=== PATIENT | male | born 1965 | race Caucasian/White ===

== ENCOUNTER → 2017-08-30 | Outpatient (CLI) | payer OTHER | END | disposition home or self-care (01) | LOC: LABPAT 16:04 | PROVIDERS: ATTEND Orthopaedic Surgery | DX: Z01.812 Encounter for preprocedural laboratory examination (principal) | CPT/HCPCS: 87070 ==

== ENCOUNTER → 2017-09-14 | Outpatient (CLI) | payer OTHER ==
[2017-09-14 17:14] LABS: Partial Thromboplastin Time 25.4 sec (22.0-30.0); Prothrombin Time 9.9 sec (9.0-12.0)
== END | disposition home or self-care (01) ==
LOC: LABPAT 16:46
PROVIDERS: ATTEND Orthopaedic Surgery
DX: Z01.812 Encounter for preprocedural laboratory examination (principal); M17.12 Unilateral primary osteoarthritis, left knee; Z79.01 Long term (current) use of anticoagulants
CPT/HCPCS: 85610; 85730

== ENCOUNTER 2017-09-25 08:49 | Inpatient (IN) | payer OTHER ==
[2017-09-13 11:40] VITALS: BMI 34.7
--- NOTE | 2017-09-24 09:31 | HP ---
HISTORY AND PHYSICAL CHIEF COMPLAINT: Left knee pain. HISTORY OF PRESENT ILLNESS: The patient is a 52-year-old male on disability, who presents with progressive left knee pain, worsening over the past several years. He is having difficult time with his normal weightbearing activities. He notes he is severely limited. He has had previous therapy and injections with only partial temporary relief. PAST MEDICAL HISTORY: Significant for [id number] diabetes, hypertension, hypothyroidism and arthritis along with PTSD. PAST SURGICAL HISTORY: Significant for previous right knee surgery. CURRENT MEDICATIONS: 1. Enalapril. 2. Ibuprofen. 3. Metformin. 4. Synthroid. ALLERGIES: He denies drug allergies. FAMILY HISTORY: Significant for pulmonary disease. SOCIAL HISTORY: Significant for previous tobacco use; however, he quit in 1990. He admits to social alcohol use. PHYSICAL EXAMINATION: On examination, the patient is approximately 5 feet 6 inches, 215 pounds of endomorphic habitus. HEENT exam is nonfocal. Neck is supple. He has painless passive motion of his left hip. Straight leg raise is negative. Active motion left knee -12 to 85 degrees of flexion. He is tender about the medial joint line. He has a moderate effusion. Collaterals stable, Teresita's negative, Neville's is equivocal. He has genu varum alignment. His distal neurovascular exam appears intact in the left lower extremity. X-rays to include weightbearing notch lateral and Merchant views left knee obtained in the office show severe medial and patellofemoral compartment narrowing. IMPRESSION: 1. Left knee severe medial and patellofemoral compartment osteoarthrosis. 2. Increased body mass index. 3. Type 2 diabetes. RECOMMENDATIONS: I talked to the patient at length regarding his condition and treatment options. At this point, he is having persistent significant pain and limitation because of osteoarthrosis despite conservative measures. After thorough discussion, he opts to proceed with surgery. We will plan to proceed with a left total knee arthroplasty. Risks and benefits were discussed at length in layman's terms. We will institute DVT prophylaxis postoperatively. MMODL / IJN: [id number] /
[~2017-09-25 08:49] MED LIST: ACETAMINOPHEN TAB 500 MG TAB PO ONE; DEXAMETHASONE SOD PHOSPHATE 10 MG/ML 1 ML VIAL IV ONE; HYDROmorphone 0.5 MG/0.5 ML SYRINGE IVP PRN; MELOXICAM 7.5 MG TAB PO ONE; MIDAZOLAM 2 MG/2 ML VIAL IV PRN; ONDANSETRON 4 MG/2 ML VIAL IVP ONE; SCOPOLAMINE 1.5MG/72HR PATCH TRANSDERM ONE; TRANEXAMIC ACID 1,000 MG in SODIUM CHLORIDE 0.9% 50 ML IVPB ONE; ceFAZolin IN SWFI 2 GM/20 ML SYRINGE IVP ONE
[2017-09-25] MEDS ORDERED: LIDOCAINE 1% 20 ML VIAL (10MG/ML) FOR IV START INTRADERMA ONE (10:00)
[2017-09-25] MEDS: LACTATED RINGERS 1,000 ML IV SCH ×2 (10:00→14:26)
[2017-09-25 10:02] LABS: Glucose,Whole Blood 174 mg/dL (75-99)
[2017-09-25] MEDS ORDERED: ROPIVACAINE 246.25 MG, EPINEPHrine 0.5 MG, KETOROLAC 30 MG, cloNIDine HCL/PF 80 MCG, WA... MISCELLANE ONE ×5 (10:11)
[2017-09-25 10:17] LABS: HCT 43.9 % (39.0-53.0); HGB 15.2 gm/dL (13.0-17.5); MCH 29.9 pg (25.0-35.0); MCHC 34.6 g/dL (31.0-37.0); MCV 86.4 fL (80.0-100.0); Mean Platelet Volume 6.9; Platelet Count 289 k/uL (150-450); RBC 5.08 m/uL (4.30-5.90); RDW 12.7 % (11.5-15.5); WBC 5.6 k/uL (3.8-10.6)
[2017-09-25] MEDS ORDERED: ONDANSETRON 4 MG/2 ML VIAL ONE (11:00)
[2017-09-25] MEDS ORDERED: ROPIVACAINE 1,100 MG, SODIUM CHLORIDE 0.9% 330 ML MISCELLANE PRN ×2 (11:03)
[2017-09-25] MEDS ORDERED: TRANEXAMIC ACID 1,000 MG/10 ML VIAL ONE (11:07)
[2017-09-25] MEDS ORDERED: SUCCINYLCHOLINE CHLORIDE 100 MG/5 ML SYR IV ONE (11:07)
[2017-09-25] MEDS ORDERED: SODIUM CHLORIDE 0.9% 100 ML BAG ONE (11:07)
[2017-09-25] MEDS ORDERED: LIDOCAINE 1% INJ 10MG/ML (20 ML MDV) ONE (11:07)
[2017-09-25] MEDS ORDERED: ROCURONIUM BROMIDE 10 MG/ML 10 ML VIAL IV ONE (11:07)
[2017-09-25] MEDS ORDERED: MORPHINE SULFATE 10 MG/ML SYRINGE ONE (11:07)
[2017-09-25] MEDS ORDERED: PROPOFOL 10 MG/ML 20 ML VIAL IV ONE (11:07)
[2017-09-25] MEDS ORDERED: MIDAZOLAM 2 MG/2 ML VIAL ONE (11:07)
[2017-09-25] MEDS ORDERED: NEOSTIGMINE 1 MG/ML 10 ML VIAL ONE (11:07)
[2017-09-25] MEDS ORDERED: fentaNYL (PF) 50 MCG/ML 2 ML AMP ONE (11:07)
[2017-09-25] MEDS ORDERED: GLYCOPYRROLATE 0.2 MG/ML 2 ML VIAL ONE (11:07)
--- NOTE | 2017-09-25 11:07 | P.ONQ ---
Anesthesiology Proc Note - PNB - Peripheral Nerve Block Performed Left Adductor Canal Infusion Time Out Performed: Yes Procedure Start Time: 10:17 Procedure Stop Time: 10:35 Indication: Acute Post-Operative Pain, Requested by physician Sedation Type: Sedate with meaningful contact maintained Preparation: Sterile Dressing Position: Supine Catheter: Indwelling Needle Types: On-Q Needle Size: 100mm (4") Needle Gauge: 21 Technique: Ultrasound Injectate: 0.5% Ropivacaine (see comment for volume) (ropi .5% 20cc) Blood Aspirated: No Pain Paresthesia on Injection Noted: No Resistance on Injection: Normal Events: Uneventful and Well Tolerated
[2017-09-25] MEDS ORDERED: ceFAZolin 3,000 MG in SODIUM CHLORIDE 0.9% IRRIGATIO 3,000 ML IRRIGATION ONE (11:44)
[2017-09-25] MEDS ORDERED: LACTATED RINGERS 1,000 ML IV ONE (12:04)
[2017-09-25] MEDS ORDERED: HYDROcodone/APAP 7.5-325MG 1 EACH TAB PO PRN (12:54)
[2017-09-25] MEDS ORDERED: NALOXONE 0.4 MG/ML 1 ML VIAL IV PRN (12:54)
[2017-09-25] MEDS ORDERED: ACETAMINOPHEN TAB 325 MG TAB PO PRN (12:54)
[2017-09-25] MEDS ORDERED: MORPHINE SULFATE 4MG/4ML SYRG IVP PRN ×2 (12:54)
[2017-09-25] MEDS ORDERED: MAGNESIUM HYDROXIDE 2,400 MG/10 ML CUP PO PRN (12:54)
[2017-09-25] MEDS ORDERED: ONDANSETRON 4 MG/2 ML VIAL IVP PRN (12:54)
[2017-09-25] MEDS ORDERED: MORPHINE SULFATE 4MG/4ML SYRG IV PRN (12:54)
--- NOTE | 2017-09-25 13:28 | P.OP ---
Date of Procedure: 09/25/17 Preoperative Diagnosis: Left knee severe tricompartmental osteoarthrosis Postoperative Diagnosis: Same Procedure(s) Performed: Left total knee mqkquifntdko-xahvkrkt-mcvdzubs substituting Implants: Depuy Attune size 8 cemented femoral component, size 7 cemented tibial component , 9 mm articular surface, 38 mm cemented patellar component. This is a posterior stabilized implant. Anesthesia: GETA, regional, local Surgeon: Hector Jackson Retort Setter #1: Valentino Montano Estimated Blood Loss (ml): 75 Pathology: other (Bone fragments) Condition: stable Disposition: PACU Indications for Procedure: The patient's a 52-year-old male presents with progressive left knee pain secondary to osteoarthrosis despite conservative measures. A discussion of the risks and benefits of operative intervention versus continued conservative measures was made with the patient. He opted to proceed with surgery. Operative risks to include infection, neurovascular injury, development of blood clots, possible component loosening, possible component failure and need for subsequent procedures was discussed. Informed consent was obtained. Operative Findings: As below Description of Procedure: Patient was brought to the operating room, and after induction of general anesthesia the left lower extremity was prepped and draped in a normal fashion. The tourniquet was inflated to 270 mmHg. A longitudinal incision extending 3 finger breaths above the superior pole of patella extending to the medial aspect of the tibial tubercle was then made. The skin and subcutaneous tissues were divided sharply. Electrocautery was used for hemostasis. A medial parapatellar arthrotomy was then performed. The medial soft tissues to include the superficial and deep portions of the medial collateral ligament as well as the medial hamstring tendons were elevated subperiosteally. The patella was everted. A portion of the retropatellar fat pad was excised sharply. The knee was then flexed. The anterior cruciate ligament was sacrificed. Blunt retractors were then placed. A starting hole was made in the distal femur 1 cm anterior to the posterior cruciate ligament origin. An intramedullary femoral guide was then gently inserted planning on 5 valgus distal cut with 9 mm distal resection. The distal cutting block was placed. The distal cut was then made. The posterior referencing sizing guide was utilized. I felt size 8 was most appropriate. 3 of external rotation was built into the jig and verified off the trans-epicondylar axis and the posterior condyles. The cutting block was pinned in place. The anterior, posterior, and chamfer cuts were then made. The bone fragments were removed. The proximal guide was then placed for the intercondylar cut. The reciprocating saw was utilized. The bone was removed in one fragment. The trial size 8 femoral component was placed and was fully seated. There is good anterior to posterior and medial to lateral fit. The distal peg holes were drilled. The trial component was then removed. Attention was then paid towards preparing the proximal tibia. An extra measure tibial guide was utilized in line with the tibial shaft and second metatarsal distally. I planned on 3 posterior slope resecting 2 mm from the medial compartment. The cutting block was pinned in place. The proximal tibial cut was then made. The bone was removed one fragment. This appeared to be in adequate in both flexion and extension gaps therefore an additional 2 mm was resected. The remnants of the medial and lateral menisci were excised at the capsular junction with electrocautery. The proximal medial tibial osteophytes were carefully removed. The tibia sized most appropriately size 7. The trial femoral and tibial components were placed along with a 9 mm articular surface. I was able to obtain full flexion and extension with good stability with varus and valgus stress. After several flexion and extension cycles, the tibial rotation was marked with electrocautery in line with the medial one third of the tibial tubercle. Attention was then paid towards the patella. A patella reamer was utilized taking this down to 14 mm of bone stock. A good flush cut was made. The patella sized most appropriately 30 mm per the proximal holes were drilled. The trial components placed. The knee was taken through range of motion. I had good patellofemoral tracking with no hands technique. The trial components were then removed. The flexion and extension gaps were checked and felt to be symmetric. The posterior osteophytes off the distal femur were carefully removed with a curved osteotome. The tibia was prepared in the appropriate rotation with appropriate drill and keel punch. The posterior soft tissues were injected with ropivacaine. The bony surfaces were prepared with pulsatile lavage and dried. The tibial component was then cemented in place and was fully seated. Excess cement was removed. The femoral component cemented in placed and was fully seated. Excess cement was removed. The trial 9 mm articular surface was placed and the knee was put in full extension. The patella component was then cemented in place. After the cement had sufficiently hardened, the knee was again taken through range of motion. Again I was able to obtain full flexion and extension with good stability with varus and valgus stress. The trial articular surface was removed and the final 9 mm articular surface was placed. This was fully seated. Care was taken to avoid any soft tissue interposition. Pulsatile lavage was again utilized. The tourniquet was deflated with less than 70 minutes total tourniquet time. Final hemostasis was obtained with electrocautery. A deep drain was placed exiting laterally. A second dose of IV TXA was given. The medial parapatellar arthrotomy was closed with #2 Ethibond suture. The subcutaneous tissues were reapproximated with interrupted 2-0 Vicryl sutures. The skin was reapproximated with 3-0 subcuticular strata fix suture. Skin tape and adhesive was applied. A sterile dressing was applied. The patient was awoken from general anesthesia and transferred to recovery room in good condition. Blood loss was estimated 75 mL. No complications were incurred. Sponge and needle counts were correct at the end the case.
[2017-09-25] MEDS: MORPHINE SULFATE 4 MG/ML SYRINGE IV ONE ×2 (14:05→14:24)
[2017-09-25 14:17] LABS: Glucose,Whole Blood 212 mg/dL (75-99)
--- NOTE | 2017-09-25 14:20 | XR ---
EXAMINATION TYPE: XR knee limited LT DATE OF EXAM: 09/25/2017 CLINICAL HISTORY: Left knee pain and arthritis status post total knee replacement. TECHNIQUE: Portable AP and crosstable lateral views of the left knee are obtained immediately postop eratively. COMPARISON: Left knee x-ray dated 06/29/2014. FINDINGS: Metallic hardware from total left knee arthroplasty is seen and appears satisfactory in al ignment and position. There is evidence of recent surgery with diffuse subcutaneous gas and percutan eous suprapatellar surgical drain noted. IMPRESSION: METALLIC HARDWARE FROM TOTAL LEFT KNEE ARTHROPLASTY IS SATISFACTORY IN ALIGNMENT.
[2017-09-25] MEDS ORDERED: INSULIN ASPART 100 UNIT/ML 1 ML 10 ML VIAL SQ ONE (15:00)
[2017-09-25] MEDS: fentaNYL (PF) 50 MCG/ML 2 ML AMP IV PRN ×2 (15:00→15:19)
[2017-09-25 17:29] LABS: Glucose,Whole Blood 192 mg/dL (75-99)
[2017-09-25 20:14] LABS: Glucose,Whole Blood 232 mg/dL (75-99)
[2017-09-25] MEDS ORDERED: traMADol 50 MG TAB ONE (23:00)
[2017-09-25] MEDS ORDERED: INSULIN DETEMIR 100 UNIT/ML 10 ML VIAL SQ ONE (23:00)
--- NOTE | 2017-09-26 03:12 | CONS ---
CONSULTATION DATE OF SERVICE: 09/25/2017. REASON FOR CONSULTATION: Advice regarding diabetes mellitus and other medications requested by Orthopedic Surgery. HISTORY OF PRESENT ILLNESS: This 52-year-old gentleman with a past medical history of diabetes mellitus, hypertension, hypertension, sleep apnea, being followed by Dr. Bentley in the clinic is admitted after left total knee joint arthroplasty. Blood sugars are slightly elevated. There is no history of any fever, rigors. No history of headache, loss of consciousness, seizures. PAST MEDICAL HISTORY: Diabetes mellitus, hypertension, hyperlipidemia, sleep apnea, history of depression, PTSD. HOME MEDICATIONS: 1. Glucophage 500 mg p.o. b.i.d. 2. Zinc 50 mg p.o. daily. 3. Multivitamins 1 p.o. daily. 4. Magnesium 200 mg p.o. daily. 5. Mevacor 20 mg q.h.s. 6. Claritin 10 mg. 7. Insulin Levemir 33 units subcu b.i.d. 8. NovoLog b.i.d. 9. Motrin 600 mg every 6 hours p.r.n. 10.Vasotec 20 mg p.o. daily. 11.Celexa 30 mg q.h.s. 12.Lipitor 20 mg q.h.s. 13.Vitamin C 1000 mg p.o. daily. 14.Xarelto 10 mg p.o. daily. ALLERGIES: None. FAMILY HISTORY: No history of heart disease or strokes in the family. SOCIAL HISTORY: Previous history of smoking. Occasional alcohol intake. REVIEW OF SYSTEMS: ENT: No diminished hearing, diminished vision. CARDIOVASCULAR: No angina, palpitations. RESPIRATORY: As mentioned earlier. GI: No nausea or vomiting. : No dysuria. NERVOUS: No numbness or weakness. ALLERGY/IMMUNOLOGY: No asthma or hay fever. MUSCULOSKELETAL: As mentioned earlier. HEMATOLOGY/ONCOLOGY: No history of anemia. ENDOCRINE: Diabetes mellitus type 2. CONSTITUTIONAL: As mentioned earlier. DERMATOLOGY: Negative. RHEUMATOLOGY: Negative. PSYCHIATRY: As mentioned earlier. PHYSICAL EXAMINATION: Alert and oriented x3. Pulse 82, blood pressure 140/78, respirations 16, temperature 98.7, pulse ox 94% on room air. HEENT: Conjunctivae normal. Oral mucosa moist. NECK: No jugular venous distention. No carotid bruits. No lymph node enlargement. CARDIOVASCULAR: S1, S2 muffled. No S4. No S4. RESPIRATORY: Breath sounds diminished in the bases. No rhonchi. No crackles. ABDOMEN: Soft, nontender. No mass palpable. LEGS: No edema. No swelling, status post left total knee arthroplasty. NERVOUS SYSTEM: Higher functions as mentioned earlier. Moves all 4 limbs. No focal motor or sensory deficits. LYMPHATIC: No lymphadenopathy in neck or axillae. SKIN: No ulcer, rash or bleeding. LABS: WBC 5.6, glucose 174, 190, 232. ASSESSMENT: 1. Status post left total knee joint arthroplasty. 2. Diabetes mellitus type 2. 3. Hypertension. 4. Hyperlipidemia. 5. Sleep apnea. 6. History of kidney stones. 7. History of back surgery. 8. Degenerative joint disease. 9. Depression. 10.Posttraumatic stress disorder. 11.Remote history of nicotine dependence. RECOMMENDATION AND DISCUSSION: In this 52-year-old gentleman who presented with multiple complex medical issues , we will monitor the patient closely, continue the current medical management and continue symptomatic treatment. Otherwise at this time I recommend continue with home dose of Levemir and Accu-Cheks a.c. and at bedtime. Otherwise, DVT prophylaxis, incentive spirometry. Will follow the patient closely with you and thank you for letting us take care of the patient and the patient may be asked to follow up with primary physician closely in the morning. MMODL / IJN: [id number] / MTDD
[2017-09-26 07:19] LABS: Glucose,Whole Blood 126 mg/dL (75-99)
[2017-09-26 07:36] LABS: Basophils % (A) 0 %; Eosinophils % (A) 0 %; Lymphocytes # (A) 1.6 k/uL (1.0-4.8); Lymphocytes % (A) 19 %; MCH 29.8 pg (25.0-35.0); MCHC 33.6 g/dL (31.0-37.0); MCV 88.6 fL (80.0-100.0); Mean Platelet Volume 6.8; Monocytes # (A) 0.7 k/uL (0-1.0); Monocytes % (A) 8 %; Neutrophils # (A) 6.2 k/uL (1.3-7.7); Neutrophils % (A) 72 %; Platelet Count 265 k/uL (150-450); RBC 3.95 m/uL (4.30-5.90); RDW 12.7 % (11.5-15.5); WBC 8.7 k/uL (3.8-10.6)
[2017-09-26 07:47] LABS: HGB 11.8 gm/dL (13.0-17.5)
--- NOTE | 2017-09-26 08:34 | P.PN ---
Progress Note - Text Progress Note Date: 09/26/17 . Postoperative day # 1 status post total knee arthroplasty, under spinal anesthesia, and adductor canal catheter placed for postoperative analgesia, currently at ropivacaine 0.2% 8 mL per hour and continuous infusion, visual analogue scale is 3/10, patient using oral pain medication for breakthrough pain. Assessment and plan= Acute postoperative pain, adductor canal catheter for pain control, pain is well controlled we'll continue the same management.
[2017-09-26] MEDS: MULTIVITAMINS, THERA 1 EACH TAB PO SCH (08:38)
[2017-09-26] MEDS: LORATADINE 10 MG TAB PO SCH (08:38)
[2017-09-26] MEDS: traMADol 50 MG TAB PO SCH ×5 (08:38→21:22)
[2017-09-26] MEDS: metFORMIN 500 MG TAB PO SCH ×2 (08:38→17:29)
[2017-09-26] MEDS: ZINC SULFATE 220 MG CAP PO SCH (08:39)
[2017-09-26] MEDS: LISINOPRIL 20 MG TAB PO SCH (08:39)
[2017-09-26] MEDS: RIVAROXABAN 10 MG TAB PO SCH (08:39)
[2017-09-26] MEDS: MAGNESIUM OXIDE 400 MG TAB PO SCH (08:39)
[2017-09-26] MEDS: INSULIN DETEMIR 100 UNIT/ML 10 ML VIAL SQ SCH ×2 (08:44→20:42)
[2017-09-26] MEDS: ceFAZolin IN SWFI 2 GM/20 ML SYRINGE IVP SCH ×2 (09:53→09:54)
[2017-09-26] MEDS: SENNOSIDES-DOCUSATE SODIUM 1 EACH TAB PO SCH ×2 (09:54→20:42)
[2017-09-26] MEDS: LACTATED RINGERS 1,000 ML IV SCH (09:58)
[2017-09-26] MEDS: HYDROcodone/APAP 7.5-325MG 1 EACH TAB PO PRN ×3 (11:07→23:42)
[2017-09-26] MEDS ORDERED: MORPHINE ORAL SOLN 10 MG/5 ML CUP PO PRN ×3 (11:19→11:20)
--- NOTE | 2017-09-26 11:50 | P.PN ---
Subjective Progress Note Date: 09/26/17 Principal diagnosis: Status post left total knee arthroplasty Patient is seen today resting in his hospital chair, he appears comfortable. He is ambulating well with physical therapy. He denies any headaches, lightheadedness, chest pain or shortness of breath. Objective - Vital Signs Vital signs: Vital Signs Temp 98.4 F 09/26/17 08:36 Pulse 75 09/26/17 08:36 Resp 16 09/26/17 08:36 BP 133/74 09/26/17 08:36 Pulse Ox 98 09/26/17 08:36 Intake & Output 09/25/17 09/26/17 09/26/17 18:59 06:59 18:59 Intake Total 2000 Output Total 435 1020 520 Balance 1566 -1020 -520 Weight 97.522 kg Intake: IV 2000 Output: Drainage 320 120 Left Knee 320 120 Urine 375 700 400 Uretheral (Mckinney) 400 Estimated Blood Loss 60 Other: Voiding Method Indwelling Catheter Indwelling Catheter - Exam Left lower extremity: Incision is clean, dry, and intact. The prineo tape is in good condition. There is minimal soft tissue swelling and ecchymosis surrounding the medial and lateral aspects of the incision. Calf is soft, no tenderness with palpation. Plantar flexion, dorsiflexion, EHL, FHL are intact. Sensory exam to light touch throughout the extremity is intact, dorsal pedis pulses 2+. - Labs CBC & Chem 7: 09/26/17 06:51 Labs: Abnormal Lab Results - Last 24 Hours (Table) 09/25/17 09/25/17 09/25/17 Range/Units 13:57 17:25 20:10 RBC (4.30-5.90) m/uL Hgb (13.0-17.5) gm/dL Hct (39.0-53.0) % POC Glucose (mg/dL) 212 H 192 H 232 H (75-99) mg/dL 09/26/17 09/26/17 Range/Units 06:51 07:16 RBC 3.95 L (4.30-5.90) m/uL Hgb 11.8 L D (13.0-17.5) gm/dL Hct 35.0 L (39.0-53.0) % POC Glucose (mg/dL) 126 H (75-99) mg/dL Assessment and Plan Plan: Assessment: 1. Postop day #1 status post left total knee arthroplasty Plan: Pain control, continue oral medication Continue with physical therapy Daily dressing changes/ice and elevate GI and DVT prophylaxis, continue Xarelto 10 mg Medical recommendations Discharge planning: Patient to be discharged home tomorrow Time with Patient: Less than 30
[2017-09-26 11:58] LABS: Glucose,Whole Blood 164 mg/dL (75-99)
[2017-09-26 17:25] LABS: Glucose,Whole Blood 153 mg/dL (75-99)
--- NOTE | 2017-09-26 20:00 | PN ---
PROGRESS NOTE DATE OF SERVICE: 09/26/2017 52-year-old gentleman who was admitted after left total knee arthroplasty, is being closely monitored. No chest pain. No palpitations. No fever. Blood sugar is improving at this time. PHYSICAL EXAM: Alert and oriented x3. Pulse is 80, blood pressure 118/56, respirations 16, temperature 98.2, pulse ox 100% on room air. HEENT: Conjunctivae normal. NECK: No jugular venous distention. CARDIOVASCULAR: S1, S2 muffled. RESPIRATORY: Breath sounds diminished in the bases. No rhonchi, no crackles. ABDOMEN: Soft, nontender. LEGS: Status post knee arthroplasty. NERVOUS SYSTEM: No focal deficits. LABS: WBC 8.2, hemoglobin 11.8. Accu-Cheks 160, 153. ASSESSMENT: 1. Status post left total knee arthroplasty. 2. Diabetes mellitus type 2. 3. Hypertension. 4. Hyperlipidemia. 5. Sleep apnea. 6. History of kidney stones. 7. History of back surgery. 8. History of degenerative joint disease. 9. History of depression. 10.History of posttraumatic stress disorder. 11.Remote history of nicotine dependence. RECOMMENDATIONS AND DISCUSSION: This 52-year-old gentleman who presented with multiple complex medical issues, will monitor the patient closely. Continue the current management and symptomatic treatment. Otherwise at this time monitor blood sugars closely. The patient is started on home dose of insulin. DVT prophylaxis. The rest of the recommendations per Orthopedic Surgery. Further recommendations to follow. MMODL / IJN: [id number] /
[2017-09-26 20:04] LABS: Glucose,Whole Blood 208 mg/dL (75-99)
[2017-09-26] MEDS ORDERED: CITALOPRAM HYDROBROMIDE 10 MG TAB PO SCH (21:00)
[2017-09-26] MEDS ORDERED: ATORVASTATIN 20 MG TAB PO SCH (21:00)
[2017-09-26] MEDS ORDERED: NON-FORMULARY DRUG (Lovastatin 20 MG) PO SCH (21:00)
[2017-09-27] MEDS: HYDROcodone/APAP 7.5-325MG 1 EACH TAB PO PRN (05:30)
[2017-09-27 07:03] LABS: Glucose,Whole Blood 86 mg/dL (75-99)
[2017-09-27] MEDS: ZINC SULFATE 220 MG CAP PO SCH (10:03)
[2017-09-27] MEDS: LORATADINE 10 MG TAB PO SCH (10:03)
[2017-09-27] MEDS: LISINOPRIL 20 MG TAB PO SCH (10:03)
[2017-09-27] MEDS: MULTIVITAMINS, THERA 1 EACH TAB PO SCH (10:03)
[2017-09-27] MEDS: RIVAROXABAN 10 MG TAB PO SCH (10:04)
[2017-09-27] MEDS: INSULIN DETEMIR 100 UNIT/ML 10 ML VIAL SQ SCH (10:04)
[2017-09-27] MEDS: metFORMIN 500 MG TAB PO SCH (10:04)
[2017-09-27] MEDS: MAGNESIUM OXIDE 400 MG TAB PO SCH (10:04)
[2017-09-27] MEDS: traMADol 50 MG TAB PO SCH ×2 (10:06→13:48)
[2017-09-27 11:47] LABS: Glucose,Whole Blood 141 mg/dL (75-99)
--- NOTE | 2017-09-27 11:56 | P.PN ---
Subjective Progress Note Date: 09/27/17 Principal diagnosis: Status post left total knee arthroplasty Patient is seen today resting in his hospital chair, he appears comfortable. He is ambulating well with physical therapy. He denies any headaches, lightheadedness, chest pain or shortness of breath. Objective - Vital Signs Vital signs: Vital Signs Temp 98.2 F 09/27/17 07:00 Pulse 74 09/27/17 07:00 Resp 14 09/27/17 07:00 BP 123/74 09/27/17 07:00 Pulse Ox 98 09/27/17 09:20 Intake & Output 09/26/17 09/27/17 09/27/17 18:59 06:59 18:59 Intake Total 600 500 Output Total 520 500 Balance -520 100 500 Intake: Oral 600 500 Output: Drainage 120 Left Knee 120 Urine 400 500 Uretheral (Mckinney) 400 Other: Voiding Method Toilet Urinal # Voids 2 2 - Exam Left lower extremity: Incision is clean, dry, and intact. The prineo tape is in good condition. There is minimal soft tissue swelling and ecchymosis surrounding the medial and lateral aspects of the incision. Calf is soft, no tenderness with palpation. Plantar flexion, dorsiflexion, EHL, FHL are intact. Sensory exam to light touch throughout the extremity is intact, dorsal pedis pulses 2+. - Labs CBC & Chem 7: 09/26/17 06:51 Labs: Abnormal Lab Results - Last 24 Hours (Table) 09/26/17 09/26/17 09/26/17 Range/Units 11:55 17:20 20:02 POC Glucose (mg/dL) 164 H 153 H 208 H (75-99) mg/dL 09/27/17 Range/Units 11:11 POC Glucose (mg/dL) 141 H (75-99) mg/dL Assessment and Plan Plan: Assessment: 1. Postop day #2 status post left total knee arthroplasty Plan: Pain control, continue oral medication Continue with physical therapy Daily dressing changes/ice and elevate GI and DVT prophylaxis, we'll discharge home on Eliquis 2.5mg bid Medical recommendations Discharge planning: Patient will be discharged home today Time with Patient: Less than 30
--- NOTE | 2017-09-27 11:59 | P.DS ---
Providers Date of admission: 09/25/17 08:49 Expected date of discharge: 09/27/17 Attending physician: Hector Jackson Consults: 09/25/17 12:54 Consult Physician Routine Consulting Provider: Jose Luis Sims Consult Reason/Comments: medical management Do you want consulting provider notified?: Yes Primary care physician: [facility] Hospital Course: Date of admission: 09/25/2017 Date of discharge: 09/27/2017 Admission diagnosis: Status post left total knee arthroplasty Discharge diagnosis: Same Attending physician: Dr. Jackson Surgical procedures: Left total knee arthroplasty Brief history: Patient is a 52-year-old male with a history of progressive primary left knee osteoarthritis. At this point patient has failed conservative treatment measures and has opted to proceed with a elective left total knee arthroplasty. Hospital course: Details of patient's surgery can be found in operative report. Patient tolerated the procedure well and was subsequently transported to orthopedic floor. Patient's orthopeidc and medical care was provided daily. Patient had daily laboratory tests performed for evaluation of overall blood counts. Patient had daily physical therapy to include strengthening range of motion as well as education with walker ambulation. Patient had daily CPM usage as part of their physical therapy program. Patient was treated with Xarelto for their postoperative DVT prophylaxis during their inpatient stay. Patient was noted to have a relatively uneventful postoperative course. Patient reported satisfactory pain control with oral pain medications by postoperative day 0. Patient showed satisfactory progress with physical therapy. Patient moved steadily through the program and had no difficulty meeting the goals by postoperative day 2. Given patient's otherwise satisfactory course and having met physical therapy goals, plan is to discharge patient home on postoperative day 2. Discharge condition/disposition: Patient will be discharged home in stable condition. Discharge medications: Instructions are given on resumption of patient's normal daily medications per primary care recommendation, in addition patient will be prescribed . Discharge instructions: 1. Wound care and infection precautions, keep incision dry and covered while showering, no lotions, creams, moisturizers. No soaking, tubs, pools, hottubs. Do not scrub over the incision. 2. Weight-bear as tolerated with walker / cane until follow-up. 3. Ice and elevate when necessary. Do not exceed 20 minutes per hour with ice pack. 4. Utilize compression sleeve until seen at first follow up appointment. 5. Visiting nursing care. 6. Home physical therapy including home CPM. 7. Pain meds and anticoagulants per prescription. 8. Pain medication has potential to cause constipation. Increase oral fluid and fiber intake. Contact primary care provider if you have not had a bowel movement within 48 hours after discharge 9. No anti-inflammatory medication until discussed at first post operative visit, this including Motrin, Aleve, Mobic, Diclofenac. 10. Follow up in office at 2 weeks postop with Monster Montano PA-C 11. Follow up with your primary care doctor 7-10 days after discharge. 12. Contact [facility] with any questions, . Procedures: Left total knee arthroplasty Patient Condition at Discharge: Good Plan - Discharge Summary Discharge Rx Participant: Yes New Discharge Prescriptions: New Docusate [Colace] 100 mg PO DAILY #30 capsule HYDROcodone/APAP 7.5-325MG [Gotha 7.5] 1 - 2 each PO Q6HR PRN #60 tab PRN Reason: Pain traMADol HCl [Ultram] 50 mg PO Q6H PRN #40 tab PRN Reason: Pain Apixaban [Eliquis] 2.5 mg PO BID #24 tab Continue Multivitamins, Thera [Multivitamin (formulary)] 1 tab PO DAILY Lovastatin [Mevacor] 20 mg PO HS Citalopram Hydrobromide [CeleXA] 30 mg PO HS metFORMIN HCL [Glucophage] 500 mg PO BID Loratadine [Claritin] 10 mg PO DAILY Enalapril [Vasotec] 20 mg PO DAILY Zinc 50 mg PO DAILY Magnesium 200 mg PO DAILY Insulin Detemir [Levemir] 33 unit SQ BID Insulin Aspart [NovoLOG] See Protocol SQ BID Ascorbic Acid [Vitamin C] 1,000 mg PO DAILY Atorvastatin Calcium [Lipitor] 20 mg PO HS Discontinued Ibuprofen [Motrin] 600 mg PO Q6HR PRN PRN Reason: Pain Discharge Medication List Ascorbic Acid [Vitamin C] 1,000 mg PO DAILY 09/13/17 [History] Citalopram Hydrobromide [CeleXA] 30 mg PO HS 09/13/17 [History] Enalapril [Vasotec] 20 mg PO DAILY 09/13/17 [History] Insulin Aspart [NovoLOG] See Protocol SQ BID 09/13/17 [History] Insulin Detemir [Levemir] 33 unit SQ BID 09/13/17 [History] Loratadine [Claritin] 10 mg PO DAILY 09/13/17 [History] Lovastatin [Mevacor] 20 mg PO HS 09/13/17 [History] Magnesium 200 mg PO DAILY 09/13/17 [History] Multivitamins, Thera [Multivitamin (formulary)] 1 tab PO DAILY 09/13/17 [History ] Zinc 50 mg PO DAILY 09/13/17 [History] metFORMIN HCL [Glucophage] 500 mg PO BID 09/13/17 [History] Atorvastatin Calcium [Lipitor] 20 mg PO HS 09/14/17 [History] Apixaban [Eliquis] 2.5 mg PO BID #24 tab 09/27/17 [Rx] Docusate [Colace] 100 mg PO DAILY #30 capsule 09/27/17 [Rx] HYDROcodone/APAP 7.5-325MG [Gotha 7.5] 1 - 2 each PO Q6HR PRN #60 tab 09/27/17 [ Rx] traMADol HCl [Ultram] 50 mg PO Q6H PRN #40 tab 09/27/17 [Rx] Follow up Appointment(s)/Referral(s): [facility], [NON-STAFF] - Valentino Montano PAC [PHYSICIAN RESEARCH SOIL SCIENTIST] - 10/12/17 2:10 pm Luciano Bentley DO [Doctor of Osteopathic Medicine] - 1 Week Activity/Diet/Wound Care/Special Instructions: Orthopedic Discharge Instructions: 1. Wound care and infection precautions, keep incision dry and covered while showering, no lotions, creams, moisturizers. No soaking, pools, hot tubs. Do not scrub over incision. 2. Weight-bear as tolerated with walker / cane until follow-up. 3. Ice and elevate when necessary. Do not exceed 20 minutes per hour with ice pack. 4. Utilize compression sleeve until seen at first follow up appointment. 5. Visiting nursing care. 6. Home physical therapy including home CPM. 7. Pain meds and anticoagulants per prescription. 8. Pain medication has potential to cause constipation. Increase oral fluid and fiber intake. Contact primary care provider if you have not had a bowel movement within 48 hours after discharge. 9. No anti-inflammatory medication until discussed at first post operative visit, this including Motrin, Aleve, Mobic, Diclofenac. 10. Follow up in office at 2 weeks postop with Monster Montano PA-C 11. Follow up with your primary care doctor 7-10 days after discharge. 12. Contact [facility] with any questions, [phone]. 13. [facility] - [phone]- will deliver to bedside before discharge. DIet: Consistent carb Accu-Cheks before meals and at bedtime, maintain log and take to follow-up visit with PCP for further recommendations Discharge Disposition: HOME WITH HOME HEALTH SERVICES
[2017-09-27 14:50] VITALS: BP 158/96; PULSE 105; RESP 16; TEMP 97.6
[2017-09-27 17:40] LABS: Glucose,Whole Blood 63 mg/dL (75-99)
--- NOTE | 2017-09-28 00:10 | PN ---
PROGRESS NOTE DATE OF SERVICE: 09/27/2017 INTERVAL HISTORY: This 52-year-old gentleman admitted with left total knee arthroplasty is improved significantly. Blood sugars are much better controlled. The Lantus insulin is to continue. No chest pain. No palpitations. No fever. EXAM: Alert and oriented x3. Pulse is 105, blood pressure 148/96, respirations 16, temperature 97.6, pulse ox 97% on room air. HEENT: Conjunctivae normal. NECK: No jugular venous distention. CARDIOVASCULAR: S1, S2. RESPIRATORY: Breath sounds diminished at the bases. No rhonchi, no crackles. ABDOMEN: Soft. LEGS: Status post arthroplasty. NERVOUS SYSTEM: No focal deficits. LABS: Accu-Cheks 86, 141. ASSESSMENT: 1. Status post left total knee arthroplasty. 2. Diabetes type 2. 3. Hypertension. 4. Hyperlipidemia. 5. Sleep apnea. 6. History of kidney stones. 7. History of back surgery. 8. History of DJD. 9. History of depression. 10.History of posttraumatic stress disorder. 11.History of remote nicotine dependence. RECOMMENDATIONS AND DISCUSSION: Continue current management and symptomatic treatment. Otherwise recommend resume the home dose of insulin and closely monitor Accu-Cheks a.c. and at bedtime. DVT prophylaxis. The rest of the recommendations per Orthopedic Surgery. MMODL / IJN: [id number] /
--- NOTE | 2017-10-01 11:27 | CDI ---
Documentation Clarification Form Date: 10/01/17 From: Altagracia Byrnes Admit Date: 09/25/2017 8:49:00 AM Patient Name: Kendrick Jimenez Visit Number: [id number] Discharge Date: 09/27/17 ATTENTION: The Clinical Documentation Specialists (CDI) and [facility] Coding Staff appreciate your assistance in clarifying documentation. Please respond to the clarification below the line at the bottom and electronically sign. The CDI & [facility] Coding staff will review the response and follow-up if needed. Please note: Queries are made part of the Legal Health Record. If you have any questions, please contact the author of this message via ITS. Dr. Hector Jackson Patient has been described to have increased body mass index. Clinical Indicators: Increased body mass index is documented on H&P. Calculated BMI is 34.7 In order to capture the severity of condition associated with patient BMI of 34.7, a clinical diagnoses needs to be documented by the physician. Please clarify: Obese Morbidly obese Unable to determine obese MTDD
== END 2017-09-27 17:45 | disposition home health service (06) | DRG 470 ==
LOC: 2ORMAIN 08:49 → 3SUR 13:12
PROVIDERS: ADMIT Orthopaedic Surgery; ATTEND Orthopaedic Surgery
PROC: 0SRD0J9 Replacement of Left Knee Joint with Synthetic Substitute, Cemented, Open Approach (ICD-10-PCS; principal; 2017-09-25 10:45)
DX: M17.12 Unilateral primary osteoarthritis, left knee (principal); E03.9 Hypothyroidism, unspecified; E11.9 Type 2 diabetes mellitus without complications; I10 Essential (primary) hypertension; F43.10 Post-traumatic stress disorder, unspecified; E78.5 Hyperlipidemia, unspecified; G47.30 Sleep apnea, unspecified; G89.18 Other acute postprocedural pain; F32.9 Major depressive disorder, single episode, unspecified; E66.9 Obesity, unspecified; M21.162 Varus deformity, not elsewhere classified, left knee; Z79.899 Other long term (current) drug therapy; Z79.1 Long term (current) use of non-steroidal anti-inflammatories (NSAID); Z87.891 Personal history of nicotine dependence; Z82.49 Family history of ischemic heart disease and other diseases of the circulatory system; Z87.442 Personal history of urinary calculi; Z79.4 Long term (current) use of insulin; Z79.01 Long term (current) use of anticoagulants; Z68.34 Body mass index [BMI] 34.0-34.9, adult
CPT/HCPCS: 85025; 85027; 88300; 94760

== ENCOUNTER 2023-08-03 06:47 | Day surgery (SDC) | payer OTHER ==
[2023-08-03] MEDS: LACTATED RINGERS 1,000 ML IV SCH (07:37)
[2023-08-03 07:41] LABS: Glucose,Whole Blood 266 mg/dL (70-110)
[2023-08-03 07:44] VITALS: RESP 16; TEMP 97.9
[2023-08-03] MEDS: INSULIN ASPART (NovoLOG) 100 UNIT/ML VIAL SQ ONE (07:45)
[2023-08-03] MEDS ORDERED: PROPOFOL 10 MG/ML 20 ML VIAL IV ONE (07:59)
--- NOTE | 2023-08-03 08:19 | P.PCN ---
Date of Procedure: 08/03/23 Procedure(s) Performed: BRIEF HISTORY: Patient is a 58-year-old pleasant male scheduled for an elective colonoscopy as a part of screening for colon cancer. PROCEDURE PERFORMED: Colonoscopy. PREOPERATIVE DIAGNOSIS: Screening for colon cancer. IV sedation per Anesthesia. PROCEDURE: After informed consent was obtained, the patient, was brought into the endoscopy unit. IV sedation was administered by Anesthesia under continuous monitoring. Digital rectal examination was normal. Initially the Olympus CF-160 flexible video colonoscope was then inserted in the rectum, gradually advanced into the cecum without any difficulty. Careful examination was performed as the scope was gradually being withdrawn. Ileocecal valve and the appendiceal orifice were visualized and appeared normal. Prep was fair.. Mucosa of the cecum, ascending colon, transverse colon, descending colon, sigmoid colon, and rectum appeared normal. Sigmoid diverticulosis. Retroflexion was performed in the rectum and no lesions were seen. The patient tolerated the procedure well. IMPRESSION: Normal-appearing colon from rectum to cecum no evidence of colorectal neoplasia. Scattered sigmoidal diverticulosis. RECOMMENDATIONS: Findings of this examination were discussed with the patient is well as his family.. He was advised to have a repeat screening colonoscopy in 10 years
[2023-08-03 08:46] LABS: Glucose,Whole Blood 250 mg/dL (70-110)
[2023-08-03 08:51] VITALS: BP 135/83; PULSE 65
== END 2023-08-03 08:55 | disposition home or self-care (01) ==
LOC: ORWHC2ENDO 06:47
PROVIDERS: ATTEND Internal Medicine Gastroenterology
DX: Z12.11 Encounter for screening for malignant neoplasm of colon (principal); K57.30 Diverticulosis of large intestine without perforation or abscess without bleeding; I10 Essential (primary) hypertension; E78.5 Hyperlipidemia, unspecified; E11.9 Type 2 diabetes mellitus without complications; E07.9 Disorder of thyroid, unspecified; G47.33 Obstructive sleep apnea (adult) (pediatric); E66.01 Morbid (severe) obesity due to excess calories; F32.A Depression, unspecified; Z79.84 Long term (current) use of oral hypoglycemic drugs; Z79.890 Hormone replacement therapy; Z79.4 Long term (current) use of insulin; Z79.899 Other long term (current) drug therapy; Z79.82 Long term (current) use of aspirin; Z68.38 Body mass index [BMI] 38.0-38.9, adult
CPT/HCPCS: 45378; J2704